=== PATIENT | male | born 1980 | race Hispanic/Latino ===

== ENCOUNTER 2025-01-01 11:44 | Emergency (ER) | payer SELFPAY ==
[2025-01-01 11:46] VITALS: BP 153/77; PULSE 64; RESP 18; TEMP 36.4; O2SAT 100
--- OUTSIDE RECORDS SUMMARY | 2025-01-01 11:46 | XMS_ITS | Clinical Summary ---
Author Organization [facility] Address [address] [place] [address] Care Team Providers Care Usability Strategist Name Role Phone Unknown, Notinfile Primary Care Provider Unavail able Allergies No known active allergies Medications SUMAtriptan (IMITREX) 25 mg tabletIndicatio ns:Migraine Take 1 tablet (25 mg total) by mouth once as needed for migraine May repeat dose once in 2 hours if no relief. Do not exceed 2 doses in 24 hours. 9 tablet 03/27/2023 Active Social History Tobacco Use Types Packs/Day Years Used Date Smoking Tobacco: Never Assessed Personal Safety Answer Date Recorded Have you ever been in or are you currently in a harmful physical or emotional relationship or is someone making you feel afraid or unsafe? Denies 03/27/2023 Sex and Gender Information Value Date Recorded Sex Assigned at Not on file Legal Sex Male 5:45 PM CDT Gender Identity Not on file Sexual Orientation Not on file Obstetrics History Last Filed Vital Signs Vital Sign Reading Time Taken Comments Blood Pressure 117/63 03/27/2023 1:05 PM CDT Pulse 42 03/27/2023 1:05 PM CDT Temperature 36.4 C (97.6 F) 03/27/2023 7:38 AM CDT Respiratory Rate 16 03/27/2023 10:08 AM CDT Oxygen Saturation 96% 03/27/2023 1:05 PM CDT Inhaled Oxygen Concentration - - Weight 100.7 kg (222 lb) 03/27/2023 10:49 AM CDT Height 172.7 cm (5' 8) 03/21/2023 7:08 PM CDT Body Mass Index 33.75 03/21/2023 7:08 PM CDT Plan of Treatment Health Maintenance Due Date Last Done Comments Colon Cancer Screening-Colonoscopy 1978 Depression Screening 1978 Hepatitis C Screening 1978 DTaP/Tdap/Td Vaccine (1 - Tdap) 1989 Hepatitis B Screening 1996 Regular Well Visit/Exam 18-64 1996 Influenza Vaccine (Season Ended) 2025 HPV Vaccines Aged Out No longer eligi ble based on patient's age to complete this topic Pneumococcal vaccine <65 Aged Out No longer eligible based on patient's age to complete this topic Care Teams Usability Strategist Relationship Specialty Start Date End Date Unknown, Notinfile PCP - General 03/21/23
--- OUTSIDE RECORDS SUMMARY | 2025-01-01 11:46 | XMS_ITS | Data Portability ---
[facility] [address] [place] [address] Assessment No assessment recorded. Plan of Treatment Reminders Order Date Submit Date Provider Last Modified By Organization Details Last Modified Time Details Appointments ANY 15 2024 10:30A M Zack Alejandro Not available Not available Not available Lab None recorded . Referral otolaryn gologist referral - impacted theresa barbosaen t 2024 025 [facility], [address], [place], [address], 12/20/2024 12:25:52 Procedures None recorded . Surgeries None recorded . Imaging None recorded . Medication Orders meclizin e 25 mg tablet 2024 025 [facility] [place], [address], 12/06/2024 16:50:32 Debrox 6.5 % ear drops 2024 025 [facility] [place], [address], 12/06/2024 14:54:23 Patient TargetsNo targets recorded. Patient Instructions Encounter Date Encounter Id Patient Instructions Last Modified By Organization Details Last Modified Time 12/06/2024 [id number] high blood pressure: care instructions [email or web address] Not available 12/06/2024 14:54:17 earwax blockage: care instructions Not available 12/06/2024 14:54:17 Learning About Being Physically Active [email or web address] Not available 12/06/2024 14:54:17 eating healthy foods: care instructions [email or web address] Not available 12/06/2024 14:54:17 Purchase a blood pressure cuff at the pharmacy and check your blood pressure twice daily. Keep track to discuss with your PCP. [email or web address] Not available 12/06/2024 16:50:22 12/16/2024 [id number] earwax blockage: care instructions [email or web address] Not available 12/16/2024 13:40:53 A healthy lifestyle: care instructions [email or web address] Not available 12/16/2024 13:39:33 Continue the Debrox. Follow up with HAKAN Toussaint as scheduled 01/05/25 at 10:30 a.m. ENT referral was sent, they will contact you to schedule an appointment. [email or web address] Not available 12/16/2024 13:40:41 Reason for Referral Trial Manager Referral fo r Excessive cerumen in ear canal impacted cerumen, recurrent Referring Physician: Veronika Escalona, Family Medicine, Encounter Date: 12/16/2024 Problems Name Problem SNOMED Code Status Onset Date Resolution Date Notes Provider Name and Address Organization Details Recorded Time Body mass index 30+ - obesity 631589791 Active 025 Cassy Hurd MA [place], [place] - [facility] 12:53:02 Problem Notes None recorded. Procedures Surgical History Date Name Laterality Status Provider Name and Address Organization Details Recorded Time Ear Irrigation completed VERONIKA ESCALONA NP Attn: [address] [place], [address], [facility] 12/16/2024 19:52:59 5 Ear Irrigation completed VERONIKA ESCALONA NP Attn: [address] [place], [address], [facility] 12/06/2024 14:51:14 Imaging Results None recorded. Procedure Notes None recorded. Medical Equipment None Reported. Allergies No known drug allergies Medications Name Sig Start Date Stop Date Status Note LastModified by Organization Details LastModified Time Debrox 6.5 % ear drops INSTILL 5 DROPS INTO AFFECTED EAR(S) BY OTIC ROUTE 2 TIMES PER DAY 2024 active Not Available Not Available Not Avai lable amoxicillin 875 mg tablet TAKE 1 TABLET BY MOUTH EVERY 12 HOURS active Not Available Not Available No t Available meclizine 25 mg tablet Take 1 tablet 3 times a day by oral route as needed, for dizziness /vertigo. 2024 active Not Available Not Available Not Avai lable amoxicillin 875 mg-potassiu m clavulanate 125 mg tablet TAKE 1 TABLET BY MOUTH EVERY 12 HOURS FOR 7 DAYS 12/06 completed Not Available Not Available Not Available ciprofloxac in 0.3 %-dexametha sone 0.1 % ear drops,suspe nsion INSTILL 4 DROPS INTO LEFT EAR EVERY 12 HOURS FOR 7 DAYS 12/06 completed Not Available Not Available Not Available Vitals Date Recorded Body height Body mass index (BMI) Body weight Oxygen saturation Oxygen saturation in Arterial blood by Pulse oximetry Heart rate Body temperature Systolic blood pressure Diastolic blood pressure Provider Name and Address Organization Details Last Updated DateTime 175.26 cm 36.9 kg/m2 761654. 14 g 98 % 98 % 62 /min 98.6 [degF] 144 mm[Hg] 86 mm[Hg] Oscar Arriola MA [facility] 13:25:17 Date Recorded Body mass index (BMI) Body weight Oxygen saturation Oxygen saturation in Arterial blood by Pulse oximetry Heart rate Respiratory rate Body temperature Systolic blood pressure Diastolic blood pressure Provider Name and Address Organization Details Last Updated DateTime 36.9 kg/m2 810223. 79 g 98 % 98 % 60 /min 18 /min 98.1 [degF] 130 mm[Hg] 78 mm[Hg] Cassy Hurd MA [facility] 12:51:45 Date Recorded Body height Provider Name an d Address Organization Details Last Updated DateTime 12/16/2024 175.26 cm Milena Card MA [facility] 12/17/19 12:43:07 Social History Question Answer Notes LastModified by Organizat ion Details LastModified Time Tobacco Smoking Status Never Smoker Oscar Arriola MA null, [facility] 12/06/2024 13:25:48 Do You Have An Advance Directive? Yes Information n ot available 12/16/2024 Are You Blind Or Do You Have Difficulty Seeing? No Information n ot available 12/16/2024 What Is Your Level Of Caffeine Consumption? None Information not available 12/06/2024 In The 14 Days Before Symptom Onset, Have You Had Close Contact With A Laboratory-confirm ed COVID-19 While That Case Was Ill? No Information n ot available 12/06/2024 In The 14 Days Before Symptom Onset, Have You Had Close Contact With A Person Who Is Under Investigation For COVID-19 While That Person Was Ill? No Information not available 12/06/2024 Have You Been To An Area Known To Be High Risk For COVID-19? No Information not available 12/06/2024 Are You Deaf Or Do You Have Serious Difficulty Hearing? No Information not available 12/16/2024 What Type Of Diet Are You Following? REGULAR Information n ot available 12/06/2024 Are There Any Guns Present In Your Home? No Information not available 12/16/2024 What Was The Date Of Your Most Recent Tobacco Screening? 12/16/2024 [email or web address] Information not available 12/16/2024 Do You Use Protection During Sex? No Information not available 12/16/2024 What Is Your Relationship Status? Information not available 12/16/2024 Do You Use Your Seat Belt Or Car Seat Routinely? Yes Information not available 12/16/2024 Are You Sexually Active? Yes Information not available 12/16/2024 Do You Have Smoke And Carbon Monoxide Detectors In Your Home? Yes Information not available 12/16/2024 Are You Passively Exposed To Smoke? No Information no t available 12/16/2024 Do You Use Sunscreen Routinely? No Information not available 12/16/2024 Has Tobacco Cessation Counseling Been Provided? No Information not available 12/06/2024 Sex: Male Functional Status Question Answer Note LastModified by Organizat ion Details LastModified Time Do you use any illicit or recreational drugs? No Information not available 12/06/2024 Do you or have you ever used any other forms of tobacco or nicotine? No Information not available 12/06/2024 What is your level of alcohol consumption? None Information not available 12/06/2024 Are you currently employed? Yes Information not available 12/16/2024 Are you able to care for yourself? Yes Information not available 12/06/2024 What is your exercise level? None Information not available 12/06/2024 Mental Status Question Answer Note LastModified by Organization D etails LastModified Time Do you feel stressed (tense, restless, nervous, or anxious, or unable to sleep at night)? [id number] Information not available 12/06/2024 Family History Nothing Reported. Medical History Condition Response Coronary Artery Disease N Other N High Blood Pressure N Atrial Fibrillation N Thyroid Problems N Kidney or Bladder Problems N GI Problems N Depression N COPD N Blood Clots N Have you had a mammogram in the last yea r? N Skin Problems N Eating Disorder N Anemia N Heart Attack ([place]) N Anxiety Disorder N Diabetes N Muscle, Joint, or Bone Problems N Arthritis N Seizures/Epilepsy N Have you had a colonoscopy in the last 1 0 years? N Acid Reflux (GERD) N Cancer N Stroke N Asthma N Allergies N Have you had a PSA blood test in the las t year? N ADHD N Substance Abuse N High Cholesterol N Hepatitis N Liver Disease N Schizophrenia N Headaches N Heart Failure N Osteoporosis N Past Encounters Encounter ID Performer Location Encounter Start Date Encounter Closed Date Diagnosis/Indication Diagnosis SNOMED-CT Code Diagnosis ICD10 Code Diagnosis Note [id number] VERONIKA ESCALONA NP [facility] [address] [place] [address] 12/06/2024 13:19:20 12/07/2024 09:09:54 Obese class III 690200990 E66.813 Impacted c erumen of bilateral ears 1315563944 273008 H61.23 Right ear with impacted cerumen.Le ft with white flaky cerumen, able to remove a moderate amount with curetted and irrigation but canal still blocked. Patient stated hearing improved after procedure. Increased blood pressure 69266149 I10 Vertigo 277429064 R42 likely ear related [id number] VERONIKA ESCALONA NP [facility] [address] [place] [address] 12/16/2024 11:35:09 12/20/2024 09:44:05 Obese class II 5202821090 17438 E66.812 Excessive cerumen in ear canal 152659186 H61.22 Health Concerns Section Related Observation LastModified by Organization Detai ls LastModified Time None Recorded Concern Status LastModified by Organization Details LastModified Time None Recorded Advance Directives Directive Y: Payers Encounter Date Sequence Insurance Name Policy Number Policy Sol Covered Member ID Sol Member ID Guarantor Name 12/06/2024 SLIDING FEE SCHEDULE - DISCOUNT Bobby Lopez 12/16/2024 1 *SELF PAY* Bassem Lopez Notes Date Note Type Note Provider Name and Address Organization Details Recorded Time 12/06/2024 text/html EaracheReported bypatient.Location:[facility] Quality:aching Severity:continuous Timing:gradual Context:no sick contacts; no recent swimming/water in ear; no exposure to second hand smoke; no head trauma; not grinding teeth; no recent air travel Modifying Factors:does not hurt to lie on, or pull on ear; nothing makes it worse; nothing gives relief Associated Symptoms:no discharge from the ears; no nose/sinus problems; no popping noise in the ears; no ringing in the ears;hearing loss(hearing in left ear is muffled) 44 yo male to IC c/o bilateral ear pressure, worse on the left x5 days, feels a little dizzy. Stated feels like something is stuck in the left ear. BP elevated, stated has been elevated in the past when in medical office but normal at home. Denied CP, SOB, weakness, or vision changes. VERONIKA ESCALONA NP Attn: [address] [facility], [place], [address], [facility] 12/06/2024 16:50:30 12/16/2024 text/html EaracheReported bypatient.Location:[facility] Quality:no pain Severity:continuous Timing:gradual Context:no sick contacts; no recent swimming/water in ear; no exposure to second hand smoke; no head trauma; not grinding teeth; no recent air travel Modifying Factors:does not hurt to lie on, or pull on ear; nothing makes it worse; nothing gives relief Associated Symptoms:no discharge from the ears; no nose/sinus problems; no popping noise in the ears; no ringing in the ears;hearing loss(hearing in left ear is muffled) 44 yo male to c/o decreased hearing in left ear. He was seen 10 days ago for similar presentation although bilateral and also had pain at that time. He has been using the Debrox with relief, stated the pain resolved, and hearing improved. However, yesterday felt like something was in his left ear again. He was also dizzy at last visit but stated this has resolved. He reported chronic hearing loss since childhood in the right ear. VERONIKA ESCALONA NP Attn: [address] [place], [address], [facility] 12/16/2024 19:53:15
--- OUTSIDE RECORDS SUMMARY | 2025-01-01 11:46 | XMS_ITS | Referral Summary ---
Author Organization [facility] Address [address] [place] [address] Care Team Providers Care Tape Transferrer Name Role Phone Unknown, Notinfile Primary Care [...] on file Sexual Orientation Not on file Last Filed Vital Signs Vital Sign Reading [...] 03/21/2023 7:08 PM CDT Plan of Treatment Not on file Care Teams Tape Transferrer Relationship Specialty Start Date End Date Unknown, Elia PCP - General 03/21/23
[2025-01-01 13:04] LABS: Basophils Absolute Auto 0.1 K/mm3 (0.0-0.1); Basophils Percent Auto 0.5 % (0.2-1.2); Eosinophils Absolute Auto 0.2 K/mm3 (0-0.3); Eosinophils Percent Auto 1.8 % (0-4.4); Hematocrit 44.9 % (42.0-52.0); Hemoglobin 14.4 g/dL (14.0-18.0); Immature Granulocyte Absolute 0.08 K/mm3 (0.00-0.031); Immature Granulocyte Percent A 0.7 % (0-0.5); Lymphocytes Absolute Auto 2.16 K/mm3 (0.9-3.2); Lymphocytes Percent Auto 19.8 % (18.3-44.2); Mean Corpuscular HGB Conc 32.1 g/dl (32-36); Mean Corpuscular Hemoglobin 27.8 pg (26-34); Mean Corpuscular Volume 86.7 fl (80-100); Mean Platelet Volume 10.1 fl (7.4-10.4); Monocytes Absolute Auto 0.5 K/mm3 (0.1-0.6); Monocytes Percent Auto 4.9 % (2.6-8.5); Neutrophils Absolute Auto 7.9 K/mm3 (1.3-6.7); Neutrophils Percent Auto 72.3 % (45.5-73.1); Platelet Count Result 283 k/mm3 (150-375); Red Blood Count 5.18 M/mm3 (4.6-6.20); White Blood Count 10.9 K/mm3 (4.5-10.0)
[2025-01-01 13:13] VITALS: BP 126/74; BP 136/81; BP 147/83; PULSE 58; PULSE 59; PULSE 60
[2025-01-01 13:13] LABS: Alanine Aminotransferase 28 U/L (6-50); Albumin Level 4.3 g/dL (3.5-5.1); Alkaline Phosphatase 83 U/L (38-126); Anion Gap 9 mmol/L (4-12); Aspartate Amino Transferase 30 U/L (17-59); Bilirubin,Total 0.9 mg/dL (0.2-1.3); Blood Urea Nitrogen 15 mg/dL (9-20); Calcium 9.2 mg/dL (8.4-10.2); Carbon Dioxide 26 mmol/L (22-30); Chloride 108 mmol/L (98-107); Estimated CRCL calculation 106 ml/min; Estimated Glomerular Filt Rate > 60; Glucose 100 mg/dL (65-110); Potassium 4.5 mmol/L (3.4-5.0); Sodium 143 mmol/L (137-145); Total Protein 7.6 g/dL (6.3-8.2)
[2025-01-01 13:16] LABS: INR 1.1
[2025-01-01 13:17] LABS: Partial Thromboplastin Time 25.6 Seconds (22.3-36.8)
--- OUTSIDE RECORDS SUMMARY | 2025-01-01 13:27 | XMS_ITS | Referral Summary ---
Author Organization [facility] Address [address] [place] [address] Care Team Providers Care Commercial Loan Specialist Name Role Phone Unknown, Notinfile Primary Care [...] of Treatment Not on file Care Teams Commercial Loan Specialist Relationship Specialty Start Date End Date Unknown, Elia PCP - General 03/21/23
--- OUTSIDE RECORDS SUMMARY | 2025-01-01 13:27 | XMS_ITS | Clinical Summary ---
Author Organization [facility] Address [address] [place] [address] Care Team Providers Care Electrician Helper Name Role Phone Unknown, Notinfile Primary Care [...] age to complete this topic Care Teams Electrician Helper Relationship Specialty Start Date End Date Unknown, Notinfile PCP - General 03/21/23
--- NOTE | 2025-01-01 13:44 | ED_ITS ---
HPI - General Adult General Chief complaint: GI Bleed Stated complaint: dizzy, headache, rectal bleeding Time Seen by Provider: 01/01/25 13:15 History of Present Illness HPI narrative: Patient is a 44-year-old male who presents ER with concerns for rectal bleeding. He was straining to have a bowel movement and he had a solid stool that had a red streak of blood. This has happened in the past from eating spicy food. No fevers chills or sweats. No abdominal pain. No loss of consciousness. It made him very scared and he came to the ER. Related Data Allergies Allergy/AdvReac Type Severity Reaction Status Date / Time sulfamethoxazole Allergy Intermediate Redness Verified 04/10/17 11:12 itching trimethoprim Allergy Intermediate Redness Verified 04/10/17 11:12 itching Review of Systems 2 Review of Systems: All systems reviewed & are unremarkable except as noted in HPI and below Constitutional: Constitutional: Reports no additional constitutional complaints ENT: Reports system reviewed and no additional complaints, except as documented Cardiovascular: Cardiovascular: Reports no additional cardiovascular complaints Respiratory: Respiratory: Reports no additional respiratory complaints Gastrointestinal: Gastrointestinal: Reports no additional gastrointestinal complaints PENDING SALE TO [facility] Past Medical History Medical History (Updated 01/01/25 @ 13:47 by Marquis Turpin MD) Healthy adult male Surgical History Surgical History (Updated 01/01/25 @ 13:45 by Marquis Turpin MD) No history of previous surgery Exam 2 Narrative: GENERAL: Well-appearing, well-nourished, and in no acute distress. HEAD: Normocephalic, atraumatic. ENT: Mucous membranes moist. CHEST: Clear to auscultation. No respiratory distress. HEART: Regular rate and rhythm. Normal peripheral pulses. ABDOMEN: Soft, nontender, nondistended. Rectal: External exam shows small hemorrhoid at the 12 o'clock position with patient left lateral decubitus position. No obvious fissure. Digital exam not performed. EXTREMITIES: Normal range of motion. No edema. NEURO: Alert and oriented x3. PSYCH: Normal mood and affect. Course Course Emergency Course: Patient given reassurance. Discussed treatment options for hemorrhoid. Discharge. Vital Signs Vital signs: Vital Signs Temperature 97.6 F 01/01/25 11:46 Pulse Rate 64 01/01/25 11:46 Respiratory Rate 18 01/01/25 11:46 Blood Pressure 153/77 H 01/01/25 11:46 Pulse Oximetry 100 01/01/25 11:46 Oxygen Delivery Room Air 01/01/25 11:46 Temperature 97.6 F 01/01/25 11:46 Pulse Rate 59 L 01/01/25 13:13 Respiratory Rate 18 01/01/25 11:46 Blood Pressure 147/83 H 01/01/25 13:13 Pulse Oximetry 100 01/01/25 11:46 Oxygen Delivery Room Air 01/01/25 11:46 Medical Decision Making Vital Signs Vital Signs: Vital Signs Temperature 97.6 F 01/01/25 11:46 Pulse Rate 64 01/01/25 11:46 Respiratory Rate 18 01/01/25 11:46 Blood Pressure 153/77 H 01/01/25 11:46 Pulse Oximetry 100 01/01/25 11:46 Oxygen Delivery Room Air 01/01/25 11:46 Temperature 97.6 F 01/01/25 11:46 Pulse Rate 59 L 01/01/25 13:13 Respiratory Rate 18 01/01/25 11:46 Blood Pressure 147/83 H 01/01/25 13:13 Pulse Oximetry 01/01/25 11:46 Oxygen Delivery Room Air 01/01/25 11:46 Lab Data 01/01/25 12:58 01/01/25 12:58 Labs: Lab Results 01/01/25 Range/Units 12:58 WBC 10.9 H (4.5-10.0) K/mm3 RBC 5.18 (4.6-6.20) M/mm3 Hgb 14.4 (14.0-18.0) g/dL Hct 44.9 (42.0-52.0) % MCV 86.7 (80-100) fl MCH 27.8 (26-34) pg MCHC 32.1 (32-36) g/dl RDW 13.0 (11.5-14.5) % Plt Count 283 (150-375) k/mm3 MPV 10.1 (7.4-10.4) fl Immature Gran % (Auto) 0.7 H (0-0.5) % Neut % (Auto) 72.3 (45.5-73.1) % Lymph % (Auto) 19.8 (18.3-44.2) % Sampson % (Auto) 4.9 (2.6-8.5) % Eos % (Auto) 1.8 (0-4.4) % Baso % (Auto) 0.5 (0.2-1.2) % Lymph # (Auto) 2.16 (0.9-3.2) K/mm3 Sampson # (Auto) 0.5 (0.1-0.6) K/mm3 Eos # (Auto) 0.2 (0-0.3) K/mm3 Baso # (Auto) 0.1 (0.0-0.1) K/mm3 Abs Immat Gran (auto) 0.08 H (0.00-0.031) K/mm3 Absolute Neuts (auto) 7.9 H (1.3-6.7) K/mm3 Absolute Nucleated RBC 0.000 (0.0-0.012) K/mm3 Nucleated RBC % 0.0 (0.0-0.2) % PT 14.0 (11.1-14.7) Seconds INR 1.1 APTT 25.6 (22.3-36.8) Seconds Sodium 143 (137-145) mmol/L Potassium 4.5 (3.4-5.0) mmol/L Chloride 108 H (98-107) mmol/L Carbon Dioxide 26 (22-30) mmol/L Anion Gap 9 (4-12) mmol/L BUN 15 (9-20) mg/dL Creatinine 0.95 (0.7-1.3) mg/dL Estim Creat Clear Calc 106 ml/min Estimated GFR > 60 (59 - ) Glucose 100 (65-110) mg/dL Calcium 9.2 (8.4-10.2) mg/dL Total Bilirubin 0.9 (0.2-1.3) mg/dL AST 30 (17-59) U/L ALT 28 (6-50) U/L Alkaline Phosphatase 83 (38-126) U/L Total Protein 7.6 (6.3-8.2) g/dL Albumin 4.3 (3.5-5.1) g/dL Blood Type A Positive Antibody Screen Pending Discharge Plan Discharge Clinical Impression: Hemorrhoids Patient Disposition: Home Condition: Stable Instructions: Hemorrhoids (ED) Additional Instructions: Return ER if you have worsening bleeding, you lose consciousness, or you have additional concerns. Take a stool softener cu not have to strain use the restroom. Apply witch lorraine topical pads to decrease her discomfort. Patient Language: Slovenian Prescriptions: New witch lorraine 20 % pads, medicated 1 pad topical BID Qty: 48 0RF docusate sodium [Colace] 100 mg capsule 100 mg PO BID Qty: 14 0RF Follow-up/Referrals: Jose Roberto Ventura MD [Physician] - 1 Week PHYSICIAN,BAG SHAKER [Primary Care Provider] -
== END 2025-01-01 14:13 | disposition home or self-care (01) ==
PROVIDERS: Emergency Provider Emergency Medicine
DX: K64.9 Unspecified hemorrhoids (principal)
CPT/HCPCS: 36415; 80053; 85025; 85610; 85730; 86850; 86900; 86901; 99283

== ENCOUNTER 2025-04-16 14:04 | Emergency (ER) | payer SELFPAY ==
[2025-04-16] VITALS (21 sets, daily range): BP systolic 133–148; BP diastolic 66–93; PULSE 71–96; RESP 15–30; TEMP 36.4; O2SAT 96–100
--- NOTE | ~2025-04-16 | CT_ITS ---
EXAMINATION: CT brain wo con COMPARISON: None HISTORY: dizziness, headache TECHNIQUE: Axial images were obtained through the brain without IV contrast. CT scan performed using dose optimization techniques including the following automated exposure control; adjustment of mA and/or kV; use of iterative reconstruction technique. Automatic exposure control was used to reduce radiation dose. Permanent radiation dose record is archived to PACS. FINDINGS: No acute infarct or parenchymal hemorrhage. No abnormal mass or mass effect. No midline shift. No extra-axial fluid collections. No hydrocephalus. . Mastoid air cells unremarkable. Sinuses and orbits unremarkable. No acute fracture. No significant facial or scalp soft tissue swelling evident. No radiopaque foreign body is seen. Impression: 1.No acute intracranial abnormality. Reviewed, dictated and finalized at location A. Impression: 1.No acute intracranial abnormality.
--- NOTE | ~2025-04-16 | XR_ITS ---
EXAMINATION: XR chest 2V, 04/16/2025 15:40 CDT HISTORY: unknown cause of symptoms COMPARISON: No comparisons available. Technique: 2 views obtained. Findings: The lungs are clear, no effusion. No pneumothorax. Heart is normal size. Mediastinal and hilar contours are within normal limits. Bony thorax no acute abnormality. Impression: No acute cardiopulmonary abnormality. Reviewed, dictated and finalized at location A. Impression: No acute cardiopulmonary abnormality.
--- NOTE | 2025-04-16 15:14 | ECG_ITS ---
Test Date: 2025-04-16 15:27:23 Measurements Intervals [place] Rate: 75 P: 39 AK: 168 QRS: 10 QRSD: 86 T: 14 QT: 353 QTc: 395 Interpretive Statements SINUS RHYTHM No previous ECG available for comparison Electronically Signed On 04-17-2025 14:16:26 CDT by Nito Calderon M.D.
--- NOTE | 2025-04-16 15:17 | ED.DIZZY ---
HPI - Dizziness General Chief Complaint: Dizziness Stated Complaint: dizzy, headache, vomit, shaky Time Seen by Provider: 04/16/25 14:35 History of Present Illness HPI Narrative: Patient is a 44-year-old male who presents to the ER with dizziness, headache, nausea, right upper quadrant pain, and numbness/tingling in his right fingertips. He reports his symptoms started less than 5 days ago. Patient endorses a history of a cholecystectomy 10 years ago and kidney stones. He denies any recent fevers, urinary symptoms, vomiting or back pain. Patient endorses intermittent visual changes and reports the room has been spinning when he sits up. He reports he has been taking ibuprofen for pain control. Related Data Allergies Allergy/AdvReac Type Severity Reaction Status Date / Time sulfamethoxazole Allergy Intermediate Redness Verified 04/16/25 14:51 itching trimethoprim Allergy Intermediate Redness Verified 04/16/25 14:51 itching Review of Systems Review of Systems: All systems reviewed & are unremarkable except as noted in HPI and below PMFSH Past Medical History Medical History Healthy adult male Surgical History Surgical History No history of previous surgery Exam Narrative: GENERAL: Well appearing, obese, non-toxic, in no acute distress. HEAD: Normocephalic, atraumatic. NECK: Supple. No adenopathy, no masses. RESPIRATORY: Airway patent, respirations nonlabored. Clear to auscultation bilaterally, no rales, rhonchi, wheezing. CARDIOVASCULAR: Regular rate and rhythm without murmurs, rubs, or gallops. Peripheral pulses 2+ and equal bilaterally. ABDOMINAL: Soft, nontender, nondistended, no hepatosplenomegaly. Normoactive BS. MUSCULOSKELETAL: Moves all extremities. Strength/ROM intact without gross deformities. SKIN: Warm, dry, normal color. No rashes. NEURO: A&O X3. Speech clear. Cranial nerves II-XII intact. No ataxic movements. PSYCHIATRIC: Appropriate mood and affect. Normal interaction. Course Vital Signs Vital signs: Vital Signs Temperature 36.4 C 04/16/25 14:06 Pulse Rate 93 04/16/25 14:06 Respiratory Rate 18 04/16/25 14:06 Blood Pressure 148/82 H 04/16/25 14:06 Pulse Oximetry 99 04/16/25 14:06 Oxygen Delivery Room Air 04/16/25 14:06 Temperature 36.4 C 04/16/25 14:06 Pulse Rate 96 04/16/25 15:36 Respiratory Rate 20 04/16/25 14:46 Blood Pressure 137/93 H 04/16/25 15:36 Pulse Oximetry 99 04/16/25 14:46 Oxygen Delivery Room Air 04/16/25 14:46 MDM - Dizziness MDM Narrative Medical decision making narrative: Patient is a 44-year-old male who presents to the ER with dizziness, headache, nausea, right upper quadrant pain, and numbness/tingling in his right fingertips. He reports his symptoms started less than 5 days ago. Patient endorses a history of a cholecystectomy 10 years ago and kidney stones. He denies any recent fevers, urinary symptoms, vomiting or back pain. Patient endorses intermittent visual changes and reports the room has been spinning when he sits up. He reports he has been taking ibuprofen for pain control. Labs Ordered: CBC, CMP, TSH, COVID/flu/RSV, UA, lipase Imaging Ordered: CT brain, chest x-ray Medications Ordered: 1 L normal saline IV bolus Results: Patient's CBC indicates the white blood cell count of 12.8. His chemistry indicates a chloride of 108, BUN of 22, glucose of 126. Patient's lipase was 75. His TSH was 0.356. Patient's urinalysis is negative for any acute abnormalities. His respiratory swab was negative. Patient's head CT scan indicates no acute intracranial abnormalities. Diagnosis: Vertigo Patient Education/Shared MDM: Results of lab work and imaging shared with patient. Patient strongly advised to maintain hydration status upon discharge and follow-up with his PCP as soon as possible. He will be given Zofran and Toradol here in the ER to treat his headache and nausea. Patient also advised to follow-up with his primary care provider regarding his TSH levels. He will be discharged home with a prescription for meclizine and Zofran. Strict return precautions provided. Patient verbalized understanding and is in agreement with plan. Vital signs stable at time of discharge. All questions answered. Differential Diagnosis Differential diagnosis: Likely benign paroxysmal positional vertigo, orthostatic hypotension and transient cerebral ischemia Lab Data Attestation: I reviewed the patient's lab results. 04/16/25 15:26 04/16/25 15:26 Labs: Lab Results 04/16/25 04/16/25 Range/Units 15:26 15:35 WBC 12.8 H (4.5-10.0) K/mm3 RBC 5.27 (4.6-6.20) M/mm3 Hgb 14.8 (14.0-18.0) g/dL Hct 43.6 (42.0-52.0) % MCV 82.7 (80-100) fl MCH 28.1 (26-34) pg MCHC 33.9 (32-36) g/dl RDW 12.9 (11.5-14.5) % Plt Count 304 (150-375) k/mm3 MPV 10.4 (7.4-10.4) fl Immature Gran % (Auto) 0.5 (0-0.5) % Neut % (Auto) 70.2 (45.5-73.1) % Lymph % (Auto) 20.4 (18.3-44.2) % [place] % (Auto) 5.3 (2.6-8.5) % Eos % (Auto) 3.1 (0-4.4) % Baso % (Auto) 0.5 (0.2-1.2) % Lymph # (Auto) 2.60 (0.9-3.2) K/mm3 [place] # (Auto) 0.7 H (0.1-0.6) K/mm3 Eos # (Auto) 0.4 H (0-0.3) K/mm3 Baso # (Auto) 0.1 (0.0-0.1) K/mm3 Abs Immat Gran (auto) 0.06 H (0.00-0.031) K/mm3 Absolute Neuts (auto) 9.0 H (1.3-6.7) K/mm3 Absolute Nucleated RBC 0.000 (0.0-0.012) K/mm3 Nucleated RBC % 0.0 (0.0-0.2) % Sodium 140 (137-145) mmol/L Potassium 4.0 (3.4-5.0) mmol/L Chloride 108 H (98-107) mmol/L Carbon Dioxide 25 (22-30) mmol/L Anion Gap 7 (4-12) mmol/L BUN 22 H (9-20) mg/dL Creatinine 0.95 (0.7-1.3) mg/dL Estim Creat Clear Calc 105 ml/min Estimated GFR > 60 (59 - ) Glucose 126 H (65-110) mg/dL POC Capillary Glucose 119 H (65-105) mg/dl Calcium 8.8 (8.4-10.2) mg/dL Total Bilirubin 0.5 (0.2-1.3) mg/dL AST 39 (17-59) U/L ALT 35 (6-50) U/L Alkaline Phosphatase 91 (38-126) U/L Total Protein 7.9 (6.3-8.2) g/dL Albumin 4.4 (3.5-5.1) g/dL Lipase 75 (23-300) U/L TSH (Reflex) 0.356 L (0.465-4.68) uIU/mL Free T4 Pending Urine Color Yellow (Yellow) Urine Appearance Clear (Clear) Urine pH 7.5 (5.0-9.0) Ur Specific [place] 1.020 (1.001-1.035) Urine Protein Negative (Negative) mg/dL Urine Glucose (UA) Negative (Negative) mg/dL Urine Ketones Negative (Negative) mg/dL Ur Blood (Man) Negative (Negative) Urine Nitrate Negative (Negative) Urine Bilirubin Negative (Negative) Urine Urobilinogen 1.0 (<2.0) mg/dL Leukocyte Esterase Rfl Negative (Negative) THERESA/UL Influenza A (RT-PCR) Negative (Negative) Influenza B (RT-PCR) Negative (Negative) RSV (RT-PCR) Negative (Negative) SARS-CoV-2 RNA (RT-PCR) Negative (Negative) Imaging Data Attestation: I personally reviewed and interpreted this imaging study as follows: Radiologist's impression: Impressions Chest X-Ray 04/16/25 15:48 Impression: No acute cardiopulmonary abnormality. Head CT 04/16/25 15:57 Impression: 1.No acute intracranial abnormality. Discharge Plan Discharge Clinical Impression: Benign paroxysmal positional vertigo, Nausea, Headache Patient Disposition: Home Condition: Stable Instructions: Antibiotic Form, Benign Paroxysmal Positional Vertigo (ED) Additional Instructions: Please return to the ER with any worsening symptoms. Follow-up with primary care provider as soon as possible. You may take Zofran at home for nausea and meclizine for feelings of dizziness. Patient Language: Bel[place]ian Prescriptions: New meclizine 25 mg tablet 25 mg PO TID Qty: 60 0RF ondansetron 4 mg tablet,disintegrating 4 mg PO Q8H PRN (Reason: nausea and vomiting) Qty: 30 0RF No Action witch lorraine 20 % pads, medicated 1 pad topical BID Qty: 48 0RF docusate sodium [Colace] 100 mg capsule 100 mg PO BID Qty: 14 0RF Follow-up/Referrals: Erasto Velasquez DO [Physician, Family Practice] Referral Note: primary care provider PHYSICIAN,COAGULATING OPERATOR [Primary Care Provider, Internal Medicine] Stand Alone Forms: Work/School Release IP Time of Disposition: 16:49
[2025-04-16] MEDS: SODIUM CHLORIDE 0.9% IV 1,000 ML 999 ML IV CONT (15:40)
[2025-04-16 15:43] LABS: Hematocrit 43.6 % (42.0-52.0); Hemoglobin 14.8 g/dL (14.0-18.0); Immature Granulocyte Percent A 0.5 % (0-0.5); Lymphocytes Absolute Auto 2.60 K/mm3 (0.9-3.2); Mean Corpuscular HGB Conc 33.9 g/dl (32-36); Mean Corpuscular Hemoglobin 28.1 pg (26-34); Mean Corpuscular Volume 82.7 fl (80-100); Nucleated Red Blood Cells Absolute Auto 0.000 K/mm3 (0.0-0.012); Nucleated Red Blood Cells Perc 0.0 % (0.0-0.2); Platelet Count Result 304 k/mm3 (150-375); Red Blood Count 5.27 M/mm3 (4.6-6.20); White Blood Count 12.8 K/mm3 (4.5-10.0)
[2025-04-16 15:49] LABS: Add Urine Microscopic? NO; Appearance Urine Clear (Clear); Glucose Urine UA Negative (Negative); Leukocyte Esterase Ur Negative LEU/UL (Negative); Nitrate Urine Negative (Negative); Specific Grav Ur 1.020 (1.001-1.035)
[2025-04-16 15:54] LABS: Alanine Aminotransferase 35 U/L (6-50); Albumin Level 4.4 g/dL (3.5-5.1); Alkaline Phosphatase 91 U/L (38-126); Anion Gap 7 mmol/L (4-12); Aspartate Amino Transferase 39 U/L (17-59); Bilirubin,Total 0.5 mg/dL (0.2-1.3); Blood Urea Nitrogen 22 mg/dL (9-20); Calcium 8.8 mg/dL (8.4-10.2); Carbon Dioxide 25 mmol/L (22-30); Chloride 108 mmol/L (98-107); Estimated CRCL calculation 105 ml/min; Estimated Glomerular Filt Rate > 60; Glucose 126 mg/dL (65-110); Lipase 75 U/L (23-300); Potassium 4.0 mmol/L (3.4-5.0); Sodium 140 mmol/L (137-145); Total Protein 7.9 g/dL (6.3-8.2)
[2025-04-16 16:21] LABS: Influenza A QL RT-PCR Negative (Negative); Influenza B QL RT-PCR Negative (Negative); RSV RNA, RT-PCR Negative (Negative); SARS-CoV-2 RNA PCR Negative (Negative)
[2025-04-16 16:24] LABS: Thyroid Stimulating Hormone Reflex 0.356 uIU/mL (0.465-4.68)
[2025-04-16] MEDS: KETOROLAC 15 MG/ML VIAL (*BKC) IV PUSH (16:53)
[2025-04-16] MEDS: ONDANSETRON INJ 4 MG/2 ML VIAL IV PUSH (16:53)
[2025-04-16 16:56] LABS: Free T4 Free Thyroxine Reflex 1.17 ng/dL (0.78-2.19)
[2025-04-16 17:46] LABS: Total Triiodothyronine (T3) 1.09 NG/ML (0.82-1.58)
== END 2025-04-16 17:06 | disposition home or self-care (01) ==
PROVIDERS: Emergency Provider Registered Nurse
DX: H81.10 Benign paroxysmal vertigo, unspecified ear (principal); R11.0 Nausea; R51.9 Headache, unspecified; Z87.442 Personal history of urinary calculi
CPT/HCPCS: 36415; 70450; 71046; 80053; 81003; 82948; 83690; 84439; 84443; 84480; 85025; 87637; 93005; 96361; 96374; 96375; 99284; J1885; J2405; J7030